=== PATIENT | male | born 1955 | race Caucasian/White ===

== ENCOUNTER 2020-07-01 21:25 | Inpatient (IN) | payer MEDICARE ==
[~2020-07-01] VITALS: Ht 175.3 cm; Wt 222.3 kg
[2020-07-01 20:00] VITALS: BP 128/73
[2020-07-01 21:39] VITALS: BP 157/74
[2020-07-01 22:10] LABS: ABSOLUTE MONOCYTES 0.5 thou/uL (0.0-1.2); BASOPHILS 0.3 %; HEMATOCRIT 39.6 % (37.0-47.0); HEMOGLOBIN 13.9 gm/dL (12.0-15.0); LYMPHOCYTES 21.2 %; MCH 29.5 pg (26.0-34.0); MCHC 35.2 g/dL (28.0-37.0); MCV 83.6 fL (80.0-100.0); MONOCYTES 11.3 %; MPV 8.5 fl. (7.2-11.1); NUCLEATED RBCS 0 /100WBC; PLATELET COUNT* 112 thou/uL (150-400); POLYS 67.2 %; RBC 4.73 mil/uL (4.20-5.00); RDW-CV 13.5 % (10.5-14.5); WBC 4.5 thou/uL (4.0-11.0)
[2020-07-01 22:14] LABS: CALCIUM 8.3 mg/dL (8.5-10.1); CREATININE 1.2 mg/dL (0.6-1.3)
[2020-07-01 22:19] LABS: ALBUMIN 3.2 g/dL (3.4-5.0); TOTAL BILIRUBIN 0.6 mg/dL (<0.1-1.0); TOTAL PROTEIN 6.8 g/dL (6.4-8.2)
[2020-07-01 22:21] LABS: PROTIME 10.4 Seconds (9.20-11.50)
[2020-07-01 22:24] LABS: INFLUENZA A ANTIGEN Negative (Negative); INFLUENZA B ANTIGEN Negative (Negative)
[2020-07-01 22:36] LABS: BE 0 mmol/L (-2 to +3); PCO2 35.1 mmHg (35.0-45.0); PO2 65.2 mmHg (75.0-100.0); pH 7.445 (7.340-7.450)
[2020-07-01 23:50] LABS: URINE BILIRUBIN NEGATIVE (Negative); URINE BLOOD TRACE (Negative); URINE CLARITY CLEAR; URINE COLOR YELLOW; URINE GLUCOSE-RANDOM NEGATIVE (Negative); URINE KETONES NEGATIVE (Negative); URINE LEUKOCYTES-REFLEX NEGATIVE (Negative); URINE NITRITE-REFLEX NEGATIVE (Negative); URINE PROTEIN 2+ (Negative); URINE SPECIFIC GRAVITY >= 1.030 (1.005-1.030); URINE UROBILINOGEN 0.2 E.U./dl (0.2-1.0)
[2020-07-02 00:05] VITALS: BP 130/68
[2020-07-02 00:14] LABS: CASTS None Seen /LPF (None Seen); SQUAMOUS 0-3 Few /LPF (0-3); URINE RBC 0-2 Rare /HPF (0-2); URINE WBC-REFLEX 0-5 Rare /HPF (0-5)
[2020-07-02 00:15] LABS: BACTERIA-REFLEX 1-9 Few /HPF (None Seen); CRYSTALS None Seen /LPF (None Seen)
[2020-07-02 01:00] VITALS: BP 128/73
--- NOTE | 2020-07-02 03:51 | NUR ---
RECEIVED REPORT FROM ED RN. PT TRASNFERRED TO ROOM 233. PT A&OX4. VSS. 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 ADMISSION HISTORY & PHYSICAL ASSESSMENT COMPLETED AND CHARTED. PT ON O2 AT 3L NC. PT TRACING SR/PAC ON TELE. PT UPSTANDBY. PT DENIES ANY PAIN. MAINTAINED ON ENHANCED ISOLATION FOR COVID. CALL LIGHT WITHIN REACH.
[2020-07-02 07:45] VITALS: BP 103/56
[2020-07-02 08:00] VITALS: BP 134/76
--- NOTE | 2020-07-02 10:30 | NUR ---
PC FROM RADIOLOGY. STATES PT NEEDS TO BE NPO FOR CHEST CT. PT HAS A 20 G IN HIS RIGHT AC WIH FLUIDS INFUSUING. PT INFORMED.
[2020-07-02 12:07] VITALS: BP 141/89
--- NOTE | 2020-07-02 15:31 | EKG ---
[place] [address] ELECTROCARDIOGRAM REPORT Name: ANA LAURAMaeveGORDO Negron Room: [place] [address] ADM IN M.R.#: [id number] Admission: 07/01/20 Attend Phys: Alena Rivera, Discharge: Date of : 55 Date of Service: 07/01/202140 Report #: [id number] THIS REPORT FOR: //name// [facility] ED Test Date: 2020-07-01 Test Time: 21:41:40 Pat Name: GORDO LEONG Department: Room: [facility] Gender: M Desk Reporter: [facility] : 1955 Requested By: Kate Howell Order Number: [id number] MD: Jordin Gibbs Measurements Intervals [place] Rate: 92 P: 57 [place]: 167 QRS: -36 QRSD: 88 T: 56 QT: 344 QTc: 426 Interpretive Statements Sinus rhythm Left axis deviation No previous ECG available for comparison Electronically Signed On 07-02-2020 15:31:09 TELEGRAPHER AGENT by Jordin Gibbs [email or web address] <ELECTRONICALLY SIGNED> By: Jordin Gibbs MD, [facility] 07/02/20 1531 40 40 Jordin Gibbs MD, [facility] /EPI
--- NOTE | 2020-07-02 16:23 | NUR ---
CM ATTEMPTED TO CONTACT PT VIA HOSPITAL ROOM PHONE AND HIS PERSONAL PHONE TO DISCUSS CM ASSESSMENT. NO ANSWER. PT IS CURRENTLY UNDER ENHANCED PRECAUTIONS D/T BEING COVID POSITIVE. 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 PT USES 0 DME. PT HAS 0 HX OF HH OR SNF. CM WILL REMAIN AVAILABLE TO ASSIST AND FOLLOW NEEDED.
--- NOTE | 2020-07-02 19:07 | NUR ---
PT ALERT AND ORIENTED. PT HAS REMAINED OFF O2 THIS SHIFT. PT DENIES DIZZINESS AT THIS TIME. APPETITE HAS INCREASED. PT SLEPT MOST OF THIS SHIFT. STEADILY AMBULATORY TO THE BATHRROM. PT TAKEN TO CT VIA WHEELCHAIR AND TOLERATED WELL. WILL CONTINUE TO MONITOR.
[2020-07-03 00:52] VITALS: BP 131/87
--- NOTE | 2020-07-03 01:52 | NUR ---
ASSUMED CARE OF PT AT 1900. PT IS ALERT AND ORIENTED. VSS. PERRLA. NO COMPLAINTS OF PAIN. STEADY GAIT. ROOM AIR. PT IS IN SINUS RYTHM ON THE TELEMETRY. PT IS RESTING COMFORTABLY IN BED. RESPIRATIONS ARE EVEN AND NONLABORED. WILL CONTINUE TO MONITOR PT.
[2020-07-03 04:00] VITALS: BP 131/87
[2020-07-03 04:32] LABS: HEMATOCRIT 37.3 % (42.0-52.0); HEMOGLOBIN 12.9 gm/dL (14.0-18.0); MCH 29.1 pg (26.0-34.0); MCHC 34.7 g/dL (28.0-37.0); MPV 8.7 fl. (7.2-11.1); RBC 4.44 mil/uL (4.50-6.00); RDW-CV 13.5 % (10.5-14.5); WBC 3.5 thou/uL (4.0-11.0)
[2020-07-03 05:14] LABS: CALCIUM 8.3 mg/dL (8.5-10.1); CREATININE 0.9 mg/dL (0.6-1.3); POTASSIUM 4.6 mmol/L (3.5-5.1)
[2020-07-03 08:00] VITALS: BP 147/83
[2020-07-03] MEDS ORDERED: DEXAMETHASONE 22 M1 PO (09:53)
[2020-07-03 10:03] VITALS: BP 147/83
--- NOTE | 2020-07-03 14:24 | NUR ---
CM INFORMED DURING PRIME ROUNDING OF THE PLAN OF CARE FOR THE PT. PLAN FOR THE PT TO D/C HOME TODAY WITH SELF-CARE AND NO CM NEEDS. CM WILL REMAIN AVAILABLE TO ASSIST AND FOLLOW NEEDED.
== END 2020-07-03 11:30 | disposition home or self-care (01) | DRG 177 ==
LOC: M.ERS 21:25 → EDSEX 21:25 → M.2W 23:26 → M.TBA-ER 23:26 → M.2W 07-02 00:28
PROVIDERS: Family Medicine; Personal Emergency Response Attendant; ADMIT Internal Medicine; ATTEND Internal Medicine
DX: U07.1 COVID-19 (principal); J96.01 Acute respiratory failure with hypoxia; J12.82 Pneumonia due to coronavirus disease 2019; E44.1 Mild protein-calorie malnutrition; E66.9 Obesity, unspecified; Z68.38 Body mass index [BMI] 38.0-38.9, adult; Z79.899 Other long term (current) drug therapy

== ENCOUNTER 2020-07-05 05:00 | Inpatient (IN) | payer MEDICARE ==
[~2020-07-05] VITALS: Ht 182.9 cm; Wt 88.7 kg
[~2020-07-05 05:00] MED LIST: DEXAMETHASONE 22 M1 PO
[2020-07-05 05:04] VITALS: BP 128/73
[2020-07-05 05:34] LABS: HEMATOCRIT 36.5 % (42.0-52.0); HEMOGLOBIN 12.7 gm/dL (14.0-18.0); MCH 29.2 pg (26.0-34.0); MCHC 34.9 g/dL (28.0-37.0); MCV 83.6 fL (80.0-100.0); NUCLEATED RBCS 0 /100WBC; PLATELET COUNT* 132 thou/uL (150-400); RBC 4.37 mil/uL (4.50-6.00); RDW-CV 13.6 % (10.5-14.5); WBC 5.2 thou/uL (4.0-11.0)
[2020-07-05 05:53] LABS: CALCIUM 7.8 mg/dL (8.5-10.1); POTASSIUM 4.3 mmol/L (3.5-5.1)
[2020-07-05 05:56] LABS: INR 1.1; PROTIME 11.6 Seconds (9.20-11.50)
[2020-07-05 06:08] LABS: ALBUMIN 2.7 g/dL (3.4-5.0); TOTAL BILIRUBIN 0.8 mg/dL (<0.1-1.0); TOTAL PROTEIN 6.6 g/dL (6.4-8.2)
[2020-07-05 07:17] LABS: ABSOLUTE LYMPHOCYTES 0.5 thou/uL (0.8-5.3); ABSOLUTE MONOCYTES 0.1 thou/uL (0.0-1.2); ABSOLUTE NEUTROPHILS 4.6 thou/uL (1.6-8.1); PLATELET ESTIMATE DECREASED
[2020-07-05 09:43] VITALS: BP 136/73
[2020-07-05 10:37] LABS: URINE BILIRUBIN NEGATIVE (Negative); URINE BLOOD NEGATIVE (Negative); URINE CLARITY CLEAR; URINE COLOR YELLOW; URINE GLUCOSE-RANDOM NEGATIVE (Negative); URINE KETONES 1+ (Negative); URINE LEUKOCYTES-REFLEX NEGATIVE (Negative); URINE NITRITE-REFLEX NEGATIVE (Negative); URINE PROTEIN TRACE (Negative); URINE UROBILINOGEN 0.2 E.U./dl (0.2-1.0)
[2020-07-05 11:51] VITALS: BP 129/69
[2020-07-05 16:06] VITALS: BP 116/74
[2020-07-05 20:00] VITALS: BP 110/73
[2020-07-05 23:45] VITALS: BP 120/72
[2020-07-06 04:14] VITALS: BP 127/72
[2020-07-06 04:36] LABS: ABSOLUTE LYMPHOCYTES 0.4 thou/uL (0.8-5.3); ABSOLUTE MONOCYTES 0.4 thou/uL (0.0-1.2); ABSOLUTE NEUTROPHILS 7.5 thou/uL (1.6-8.1); BASOPHILS 0.1 %; HEMATOCRIT 37.4 % (42.0-52.0); HEMOGLOBIN 13.2 gm/dL (14.0-18.0); LYMPHOCYTES 5.4 %; MCH 28.9 pg (26.0-34.0); MCHC 35.2 g/dL (28.0-37.0); MCV 82.2 fL (80.0-100.0); MONOCYTES 4.3 %; MPV 7.9 fl. (7.2-11.1); NUCLEATED RBCS 0 /100WBC; PLATELET COUNT* 180 thou/uL (150-400); POLYS 90.2 %; RBC 4.55 mil/uL (4.50-6.00); RDW-CV 13.7 % (10.5-14.5); WBC 8.3 thou/uL (4.0-11.0)
[2020-07-06 04:47] LABS: ALBUMIN 2.5 g/dL (3.4-5.0); CALCIUM 8.3 mg/dL (8.5-10.1); CREATININE 1.1 mg/dL (0.6-1.3); MAGNESIUM 2.2 mg/dL (1.8-2.4); TOTAL BILIRUBIN 0.6 mg/dL (<0.1-1.0); TOTAL PROTEIN 6.8 g/dL (6.4-8.2)
[2020-07-06 08:00] VITALS: BP 149/77
[2020-07-06 12:00] VITALS: BP 129/75
--- NOTE | 2020-07-06 12:17 | EKG ---
[place] [address] ELECTROCARDIOGRAM REPORT Name: ANA LAURAMaeveGORDO Negron Room: [place] [address] ADM IN M.R.#: [id number] Admission: 07/05/20 Attend Phys: Alena Rivera, Discharge: Date of : 55 Date of Service: 07/05/20 0510 Report #: [id number] THIS REPORT FOR: //name// [facility] ED Test Date: 2020-07-05 Test Time: 05:10:07 Pat Name: GORDO LEONG Department: Room: [facility] Gender: M Division Plant Engineer: : 1955 Requested By: Socorro Aldrich Order Number: [id number] MD: Baltazar Paige Measurements Intervals [place] Rate: 89 P: 49 NV: 168 QRS: -16 QRSD: 91 T: 21 QT: 342 QTc: 417 Interpretive Statements Sinus rhythm Borderline left axis deviation Baseline wander in lead(s) V1 Compared to ECG 07/01/2020 21:41:40 No significant changes noted Electronically Signed On 07-06-2020 12:17:22 AVIATION PROJECT MANAGER by Baltazar Paige [email or web address] <ELECTRONICALLY SIGNED> By: Baltazar Paige MD, FACC 07/06/20 1217 0510 0510 Baltazar Paige MD, FAC /EPI
[2020-07-06 16:42] VITALS: BP 117/77
[2020-07-06 20:05] VITALS: BP 127/75
[2020-07-07] VITALS: BP 129/73
[2020-07-07 05:01] LABS: ABSOLUTE LYMPHOCYTES 0.6 thou/uL (0.8-5.3); ABSOLUTE MONOCYTES 0.6 thou/uL (0.0-1.2); ABSOLUTE NEUTROPHILS 5.9 thou/uL (1.6-8.1); BASOPHILS 0.1 %; HEMATOCRIT 34.9 % (42.0-52.0); HEMOGLOBIN 12.4 gm/dL (14.0-18.0); LYMPHOCYTES 8.5 %; MCH 29.4 pg (26.0-34.0); MCHC 35.4 g/dL (28.0-37.0); MCV 82.9 fL (80.0-100.0); MONOCYTES 7.8 %; MPV 7.6 fl. (7.2-11.1); NUCLEATED RBCS 0 /100WBC; PLATELET COUNT* 204 thou/uL (150-400); POLYS 83.6 %; RBC 4.21 mil/uL (4.50-6.00); RDW-CV 13.6 % (10.5-14.5); WBC 7.1 thou/uL (4.0-11.0)
[2020-07-07 05:14] VITALS: BP 118/69
[2020-07-07 05:17] LABS: ALBUMIN 2.2 g/dL (3.4-5.0); CREATININE 0.9 mg/dL (0.6-1.3); POTASSIUM 4.4 mmol/L (3.5-5.1); TOTAL BILIRUBIN 0.6 mg/dL (<0.1-1.0); TOTAL PROTEIN 6.2 g/dL (6.4-8.2)
[2020-07-07 08:30] VITALS: BP 134/77
--- NOTE | 2020-07-07 11:40 | CON ---
[address] [address] CONSULTATION Name: GORDO LEONG Room: [place] [address] ADM IN .R.#: [id number] Admission: 07/05/20 Attend Phys: Alena Rivera MD Discharge: Date of : 55 Report #: [id number] THIS REPORT FOR: cc: Tenzin Hoffmann DC, Ray DC ~ Kael Mason MD DATE OF SERVICE: 07/05/2020 Consult has been a requested by Dr. Interiano. INDICATION FOR CONSULTATION: COVID-19. HISTORY OF PRESENT ILLNESS: This 65-year-old gentleman, past medical history does not include a history of any longstanding cardiac or respiratory disease. The patient also says that he is a lifetime nonsmoker. The patient was recently admitted with COVID-19 at this hospital, was treated with dexamethasone, did not receive plasma or remdesivir during the last hospitalization. The patient had subsequently requested discharge and was discharged in a stable condition. The patient did have a CTA chest, which was performed during the last hospitalization. This had not indicated any pulmonary emboli. He did have elevation in D-dimer. He did have extensive bilateral pulmonary infiltrates secondary to COVID-19, on his CT chest. The patient after going home, had increasing shortness of breath, which is the reason that he came back to the Emergency Room and was admitted early today. His O2 saturation is reported to be between 90% and 92% on room air, currently he is on 2 liters of oxygen. The patient also reports that he is feeling more weak. His chest x-ray does show significant progression of previously seen infiltrates. He does have a cough. There is not much sputum. There is no chest pain. He does not report upper respiratory complaints. Currently, he is not having fever or chills, but he did have a low-grade fever during the previous admission up to 37.6. He answers to the negative for 12 questions for review of systems except as mentioned above. PAST MEDICAL HISTORY: There is no pertinent past medical history. CURRENT MEDICATIONS: List in [place] reviewed. HOME MEDICATIONS: Recent use of dexamethasone as above. FAMILY HISTORY: No pertinent family history. SOCIAL HISTORY: Lifetime nonsmoker. No known history [place] [address] CONSULTATION Name: GORDO LEONG Room: [address]#: [id number] Admission: 07/05/20 Attend Phys: Alena Rivera MD Discharge: Date of : 55 Report #: [id number] illegal drug use. PHYSICAL EXAMINATION: GENERAL: He is alert, awake and oriented. VITAL SIGNS: He has a pulse of 82 and a blood pressure of 129/69. He is on 2 liters of oxygen. O2 saturation previously reported to be between 90 and 92 on room air. Currently, he has been saturating between 93 and 95 on 2 liters nasal cannula, respiratory rate is 18, heart rate 82, blood pressure 129/69, afebrile with a temperature of 36.6. HEENT: Head is normocephalic and atraumatic. Pupils are equal and reactive. Mucous membranes are moist. NECK: Does not show raised JVP, asymmetry, mass or lymph nodes. CHEST: Symmetrical expansion on inspection and palpation. On auscultation, breath sounds are bilaterally equal. I do not hear any added sounds. HEART: Regular. There is no murmur. ABDOMEN: Soft and nontender. EXTREMITIES: Lower extremities show no edema and no calf tenderness. SKIN: Dry and intact. NEUROLOGICAL: Moves all extremities bilaterally equally and spontaneously with no focal deficit identified. LABORATORY DATA: The patient's chest x-ray now is reviewed and compared with the chest x-ray done during the previous admission. I also reviewed the CT chest films as well as report. In summary, there are worsening infiltrates bilaterally. There is likely a component of increasing pulmonary vascular congestion as well. There are no pulmonary emboli on the last CT. Lab work in [facility] reviewed. Mild elevation in LFTs and mild decrease in platelet count noted. I have requested a magnesium level to be added to this morning's labs and that is pending at this time. The proBNP is mildly elevated. ASSESSMENT AND PLAN: 1. Acute respiratory insufficiency. Primarily, this is secondary to COVID-19. The patient may have a secondary bacterial infection as well. 2. COVID-19. I would continue dexamethasone at 6 mg a day for now. In case he worsens, then I will consider increasing the dose. I also recommend that we go ahead and treat him with remdesivir. This was discussed with the patient and he agreed. There is mild elevation in LFTs. I still feel that the benefit is greater than the risk and I will start. We will watch LFTs. I do not feel strongly either way regarding treating him with convalescent plasma at this time or holding off. I did not order at this time. 3. Pulmonary infiltrates. I also fully agree with covering him with antibiotics for possibility of possible secondary bacterial infection. If possible, then I recommend obtaining a nasal swab for methicillin-resistant Staphylococcus aureus as well as a sputum culture. [address] [place] [address] CONSULTATION Name: GORDO LEONG Room: [address] IN [facility]#: [id number] Admission: 07/05/20 Attend Phys: Alena Rivera MD Discharge: Date of : 55 Report #: [id number] 4. Mild fluid overload. I will go ahead and give him a dose of Lasix, follow response. We will check magnesium level as well and replace magnesium if indicated. 5. Elevated D-dimer/deep venous thrombosis prophylaxis. Last CTA chest did not show pulmonary emboli. I would go ahead and do venous Dopplers at this time. I would also treat him with the intermediate dose Lovenox for deep venous thrombosis prophylaxis at 0.5 mg/kg b.i.d. 6. Clostridium difficile prophylaxis, Lactinex. 7. Possible component of bronchospasm. Agree with continuing with DuoNeb. We agree with continuing with nebulized bronchodilators. We will adjust dose and to reduce frequency, I may consider adding Brovana. Thanks for this consultation. <ELECTRONICALLY SIGNED> By: Kael Mason MD 07/07/20 1140 1308 2033Akatarina Mason MD /nt
[2020-07-07 12:00] VITALS: BP 136/69
[2020-07-07 16:00] VITALS: BP 141/77
[2020-07-07 20:45] VITALS: BP 144/81
[2020-07-08 00:08] VITALS: BP 143/81
[2020-07-08 04:30] LABS: ABSOLUTE LYMPHOCYTES 0.6 thou/uL (0.8-5.3); ABSOLUTE MONOCYTES 0.6 thou/uL (0.0-1.2); ABSOLUTE NEUTROPHILS 5.7 thou/uL (1.6-8.1); BASOPHILS 0.1 %; HEMATOCRIT 36.4 % (42.0-52.0); HEMOGLOBIN 12.5 gm/dL (14.0-18.0); LYMPHOCYTES 8.9 %; MCH 28.7 pg (26.0-34.0); MCHC 34.5 g/dL (28.0-37.0); MCV 83.2 fL (80.0-100.0); MONOCYTES 8.2 %; MPV 7.5 fl. (7.2-11.1); NUCLEATED RBCS 0 /100WBC; PLATELET COUNT* 254 thou/uL (150-400); POLYS 82.8 %; RBC 4.38 mil/uL (4.50-6.00); RDW-CV 13.5 % (10.5-14.5); WBC 6.9 thou/uL (4.0-11.0)
[2020-07-08 04:45] VITALS: BP 127/76
[2020-07-08 04:54] LABS: ALBUMIN 2.1 g/dL (3.4-5.0); CALCIUM 8.2 mg/dL (8.5-10.1); CREATININE 0.9 mg/dL (0.6-1.3); POTASSIUM 4.5 mmol/L (3.5-5.1); TOTAL BILIRUBIN 0.6 mg/dL (<0.1-1.0); TOTAL PROTEIN 6.2 g/dL (6.4-8.2)
[2020-07-08 09:30] VITALS: BP 132/78
[2020-07-08 15:54] VITALS: BP 131/81; BP 167/97
[2020-07-08 16:35] VITALS: BP 167/97
[2020-07-08 20:05] VITALS: BP 126/78
[2020-07-09] VITALS: BP 130/66
[2020-07-09 04:26] LABS: ABSOLUTE LYMPHOCYTES 0.5 thou/uL (0.8-5.3); ABSOLUTE MONOCYTES 0.4 thou/uL (0.0-1.2); ABSOLUTE NEUTROPHILS 4.7 thou/uL (1.6-8.1); BASOPHILS 0.3 %; HEMATOCRIT 39.3 % (42.0-52.0); HEMOGLOBIN 13.7 gm/dL (14.0-18.0); LYMPHOCYTES 8.6 %; MCH 28.8 pg (26.0-34.0); MCHC 34.9 g/dL (28.0-37.0); MCV 82.5 fL (80.0-100.0); MONOCYTES 7.5 %; MPV 7.3 fl. (7.2-11.1); NUCLEATED RBCS 0 /100WBC; POLYS 83.6 %; RBC 4.77 mil/uL (4.50-6.00); RDW-CV 13.6 % (10.5-14.5); WBC 5.6 thou/uL (4.0-11.0)
[2020-07-09 04:34] LABS: ALBUMIN 2.5 g/dL (3.4-5.0); CALCIUM 8.7 mg/dL (8.5-10.1); POTASSIUM 4.2 mmol/L (3.5-5.1); TOTAL BILIRUBIN 0.7 mg/dL (<0.1-1.0); TOTAL PROTEIN 7.1 g/dL (6.4-8.2)
[2020-07-09 05:00] LABS: PLATELET COUNT* 340 thou/uL (150-400)
[2020-07-09 06:29] VITALS: BP 124/71
[2020-07-09 08:30] VITALS: BP 117/75
[2020-07-09 13:02] VITALS: BP 136/75; BP 145/86; BP 159/83
--- NOTE | 2020-07-09 13:13 | 2DMMODE ---
[place] [address] 2 D/M-MODE ECHOCARDIOGRAM Name: GODRO LEONG Room: [place] [address] ADM IN [facility].#: [id number] Admission: 07/05/20 Attend Phys: Alena Rivera, Discharge: Date of : 55 Date of Service: 07/09/20 1312 Report #: [id number] THIS REPORT FOR: cc: Tenzin Hoffmann DC, Ray DC Blick, David R. MD [facility] ~ APPROVED REPORT Study performed: 07/09/2020 11:13:38 EXAM: Comprehensive 2D, Doppler, and color-flow Echocardiogram Patient Location: In-Patient Room #: [facility] Status: routine BSA: 2.08 HR: 65 bpm BP: 117/75 mmHg Rhythm: NSR Other Information Study Quality: Good Indications Dyspnea 2D Dimensions IVSd: 8.83 (7-11mm) LVOT Diam: 19.86 (18-24mm) LVDd: 49.08 mm PWd: 9.39 (7-11mm) Ascending Ao: 30.99 (22-36mm) LVDs: 28.86 (25-40mm) Aortic Root: 28.62 mm Volumes Left Atrial Volume (Systole) LA ESV Index: 18.80 mL/m2 Aortic Valve AoV Peak Dk.: 1.32 m/s AO Peak Gr.: 6.97 mmHg LVOT Max P.71 mmHg AO Mean Gr.: 3.72 mmHg LVOT Mean P.44 mmHg LVOT Max V: 1.30 m/s AO V2 VTI: 28.77 cm LVOT Mean V: 0.69 m/s DALJIT (VTI): 2.88 cm2 LVOT V1 VTI: 26.76 [place] [address] 2 D/M-MODE ECHOCARDIOGRAM Name: GORDO LEONG Room: [address] IN ..#: [id number] Admission: 07/05/20 Attend Phys: Alena Rivera, Discharge: Date of : 55 Date of Service: 07/09/20 1312 Report #: [id number] Mitral Valve E/A Ratio: 0.82 MV Decel. Time: 250.70 ms MV E Max Dk.: 0.68 m/s MV PHT: 72.70 ms MVA (PHT): 3.03 cm2 TDI E/Lateral E': 8.50 E/Medial E': 8.50 Medial E' Dk.: 0.08 m/s Lateral E' Dk.: 0.08 m/s Pulmonary Valve PV Peak Dk.: 1.12 m/s PV Peak Gr.: 5.03 mmHg Tricuspid Valve RAP Estimate: 5.00 mmHg TR Peak Gr.: 24.14 mmHg RVSP: 29.00 mmHg PA Pressure: 29.00 mmHg Left Ventricle The left ventricle is normal size. There is normal LV segmental wall motion. There is normal left ventricular wall thickness. Left ventricular systolic function is normal. The left ventricular ejection fraction is within the normal range. LVEF is 60-65%. Grade I - abnormal relaxation pattern. Right Ventricle Right ventricle is dilated. The right ventricular systolic function is normal. Atria The left atrium size is normal. Right atrium is dilated. Aortic Valve The aortic valve is normal in structure. No aortic regurgitation is present. There is no aortic valvular stenosis. Mitral Valve The mitral valve is normal in structure. Trace mitral regurgitation. No evidence of mitral valve stenosis. Tricuspid Valve The tricuspid valve is normal in structure. Trace tricuspid regurgitation[place] [address] 2 D/M-MODE ECHOCARDIOGRAM Name: GORDO LEONG Room: [address] IN [facility]#: [id number] Admission: 07/05/20 Attend Phys: Alena Rivera, Discharge: Date of : 55 Date of Service: 07/09/20 1312 Report #: [id number] Pulmonic Valve The pulmonary valve is normal in structure. Trace pulmonic regurgitation. Great Vessels The aortic root is normal in size. IVC is normal in size and collapses >50% with inspiration. Pericardium There is no pericardial effusion. <Conclusion> Left ventricular systolic function is normal. The left ventricular ejection fraction is within the normal range. <ELECTRONICALLY SIGNED> By: Gurvinder Saleh MD, FACC 07/09/20 131 11 131 Gurvinder Saleh MD, FACC /INF
[2020-07-09 21:10] VITALS: BP 144/71
[2020-07-10 00:23] VITALS: BP 133/74
[2020-07-10 04:37] LABS: HEMATOCRIT 39.6 % (42.0-52.0); HEMOGLOBIN 13.6 gm/dL (14.0-18.0); MCH 28.9 pg (26.0-34.0); MCHC 34.4 g/dL (28.0-37.0); MCV 84.1 fL (80.0-100.0); MPV 7.1 fl. (7.2-11.1); NUCLEATED RBCS 0 /100WBC; PLATELET COUNT* 378 thou/uL (150-400); RBC 4.71 mil/uL (4.50-6.00); RDW-CV 13.6 % (10.5-14.5); WBC 8.1 thou/uL (4.0-11.0)
[2020-07-10 05:01] LABS: ALBUMIN 2.4 g/dL (3.4-5.0); CREATININE 1.2 mg/dL (0.6-1.3); POTASSIUM 4.2 mmol/L (3.5-5.1); TOTAL BILIRUBIN 0.5 mg/dL (<0.1-1.0); TOTAL PROTEIN 6.9 g/dL (6.4-8.2)
[2020-07-10 05:25] VITALS: BP 133/73
[2020-07-10 05:46] LABS: ABSOLUTE LYMPHOCYTES 0.5 thou/uL (0.8-5.3); ABSOLUTE MONOCYTES 0.6 thou/uL (0.0-1.2); PLATELET ESTIMATE ADEQUATE
[2020-07-10 08:00] VITALS: BP 138/72
[2020-07-10 11:50] VITALS: BP 138/74
[2020-07-10 16:58] VITALS: BP 124/71
[2020-07-10 20:00] VITALS: BP 141/78
[2020-07-11] VITALS: BP 142/74
[2020-07-11 04:00] VITALS: BP 153/77
[2020-07-11 08:00] VITALS: BP 139/83
[2020-07-11 12:00] VITALS: BP 139/77
[2020-07-11 16:18] VITALS: BP 146/76
[2020-07-11 20:00] VITALS: BP 140/89
[2020-07-12 00:20] VITALS: BP 136/75
[2020-07-12 05:13] LABS: ABSOLUTE LYMPHOCYTES 0.7 thou/uL (0.8-5.3); ABSOLUTE MONOCYTES 0.4 thou/uL (0.0-1.2); ABSOLUTE NEUTROPHILS 8.7 thou/uL (1.6-8.1); BASOPHILS 0.1 %; EOSINOPHILS 0.1 %; HEMATOCRIT 37.6 % (42.0-52.0); LYMPHOCYTES 7.2 %; MCH 29.1 pg (26.0-34.0); MCHC 34.6 g/dL (28.0-37.0); MCV 84.1 fL (80.0-100.0); MONOCYTES 4.4 %; NUCLEATED RBCS 0 /100WBC; PLATELET COUNT* 382 thou/uL (150-400); POLYS 88.2 %; RBC 4.47 mil/uL (4.50-6.00); RDW-CV 13.5 % (10.5-14.5); WBC 9.9 thou/uL (4.0-11.0)
[2020-07-12 05:28] LABS: ALBUMIN 2.3 g/dL (3.4-5.0); CALCIUM 8.7 mg/dL (8.5-10.1); CREATININE 0.9 mg/dL (0.6-1.3); POTASSIUM 4.9 mmol/L (3.5-5.1); TOTAL BILIRUBIN 0.6 mg/dL (<0.1-1.0)
[2020-07-12 06:28] VITALS: BP 139/61
[2020-07-12 08:00] VITALS: BP 129/75
[2020-07-12 12:00] VITALS: BP 132/79
[2020-07-12 16:00] VITALS: BP 129/85
[2020-07-12 22:20] VITALS: BP 120/70
[2020-07-13 04:38] VITALS: BP 143/88
[2020-07-13 04:48] LABS: ABSOLUTE LYMPHOCYTES 1.5 thou/uL (0.8-5.3); ABSOLUTE MONOCYTES 0.8 thou/uL (0.0-1.2); ABSOLUTE NEUTROPHILS 10.6 thou/uL (1.6-8.1); BASOPHILS 0.1 %; EOSINOPHILS 0.4 %; HEMATOCRIT 38.6 % (42.0-52.0); LYMPHOCYTES 11.2 %; MCH 28.5 pg (26.0-34.0); MCHC 33.8 g/dL (28.0-37.0); MCV 84.4 fL (80.0-100.0); MONOCYTES 5.9 %; MPV 7.2 fl. (7.2-11.1); NUCLEATED RBCS 0 /100WBC; PLATELET COUNT* 360 thou/uL (150-400); POLYS 82.4 %; RBC 4.58 mil/uL (4.50-6.00); RDW-CV 13.6 % (10.5-14.5); WBC 12.9 thou/uL (4.0-11.0)
[2020-07-13 04:53] LABS: CALCIUM 8.6 mg/dL (8.5-10.1); CREATININE 0.9 mg/dL (0.6-1.3); POTASSIUM 4.5 mmol/L (3.5-5.1)
[2020-07-13 07:58] VITALS: BP 139/81
[2020-07-13 12:00] VITALS: BP 142/79
[2020-07-13 16:00] VITALS: BP 132/81
[2020-07-13 20:00] VITALS: BP 135/89
[2020-07-14 00:32] VITALS: BP 135/92
[2020-07-14 08:00] VITALS: BP 119/80
[2020-07-14 08:31] LABS: HEMATOCRIT 40.9 % (42.0-52.0); HEMOGLOBIN 13.7 gm/dL (14.0-18.0); MCH 28.1 pg (26.0-34.0); MCHC 33.6 g/dL (28.0-37.0); MCV 83.6 fL (80.0-100.0); MPV 7.1 fl. (7.2-11.1); NUCLEATED RBCS 0 /100WBC; PLATELET COUNT* 400 thou/uL (150-400); RBC 4.89 mil/uL (4.50-6.00); RDW-CV 13.4 % (10.5-14.5)
[2020-07-14 08:46] LABS: ALBUMIN 2.5 g/dL (3.4-5.0); CALCIUM 8.6 mg/dL (8.5-10.1); CREATININE 0.9 mg/dL (0.6-1.3); TOTAL BILIRUBIN 0.6 mg/dL (<0.1-1.0); TOTAL PROTEIN 6.3 g/dL (6.4-8.2)
[2020-07-14 09:13] LABS: ABSOLUTE EOSINOPHILS 0.1 thou/uL (0.0-0.7); ABSOLUTE LYMPHOCYTES 3.3 thou/uL (0.8-5.3); ABSOLUTE MONOCYTES 0.5 thou/uL (0.0-1.2); ABSOLUTE NEUTROPHILS 9.1 thou/uL (1.6-8.1); PLATELET ESTIMATE ADEQUATE
[2020-07-14 12:00] VITALS: BP 126/70
[2020-07-14 20:00] VITALS: BP 121/74
[2020-07-15 03:54] VITALS: BP 125/73
[2020-07-15 04:26] LABS: ABSOLUTE EOSINOPHILS 0.1 thou/uL (0.0-0.7); ABSOLUTE LYMPHOCYTES 1.5 thou/uL (0.8-5.3); ABSOLUTE MONOCYTES 0.8 thou/uL (0.0-1.2); ABSOLUTE NEUTROPHILS 10.9 thou/uL (1.6-8.1); BASOPHILS 0.1 %; EOSINOPHILS 0.7 %; HEMATOCRIT 37.5 % (42.0-52.0); HEMOGLOBIN 12.7 gm/dL (14.0-18.0); LYMPHOCYTES 11.3 %; MCH 28.4 pg (26.0-34.0); MCHC 33.9 g/dL (28.0-37.0); MCV 83.6 fL (80.0-100.0); MONOCYTES 5.9 %; MPV 7.3 fl. (7.2-11.1); NUCLEATED RBCS 0 /100WBC; PLATELET COUNT* 359 thou/uL (150-400); RBC 4.49 mil/uL (4.50-6.00); RDW-CV 13.6 % (10.5-14.5); WBC 13.3 thou/uL (4.0-11.0)
[2020-07-15 04:33] LABS: CALCIUM 8.7 mg/dL (8.5-10.1); CREATININE 0.9 mg/dL (0.6-1.3); POTASSIUM 4.3 mmol/L (3.5-5.1)
[2020-07-15 09:00] VITALS: BP 126/77
[2020-07-15] MEDS ORDERED: PROTONIX40 M2 PO (10:12)
[2020-07-15] MEDS ORDERED: DEXAMETHASONE1 MG PO (10:12)
[2020-07-15] MEDS ORDERED: VENTOLIN HFA 1818 GM INH (10:12)
[2020-07-15] MEDS ORDERED: DOXYCYCLINE 10100 MG PO (10:12)
[2020-07-15 12:40] VITALS: BP 126/77
== END 2020-07-15 13:30 | disposition home or self-care (01) | DRG 871 ==
LOC: M.ERS 05:00 → M.TBA-ER 06:42 → M.2W 06:42
PROVIDERS: Emergency Medicine; Internal Medicine; ADMIT Internal Medicine; ATTEND Internal Medicine
PROC: XW033E5 Introduction of Remdesivir Anti-infective into Peripheral Vein, Percutaneous Approach, New Technology Group 5 (ICD-10-PCS; principal; 2020-07-05)
PROC: XW13325 Transfusion of Convalescent Plasma (Nonautologous) into Peripheral Vein, Percutaneous Approach, New Technology Group 5 (ICD-10-PCS; 2020-07-08)
PROC: 5A0935A Assistance with Respiratory Ventilation, Less than 24 Consecutive Hours, High Flow/Velocity Cannula (ICD-10-PCS; 2020-07-08)
PROC: 5A0935A Assistance with Respiratory Ventilation, Less than 24 Consecutive Hours, High Flow/Velocity Cannula (ICD-10-PCS; 2020-07-09)
PROC: 5A0935A Assistance with Respiratory Ventilation, Less than 24 Consecutive Hours, High Flow/Velocity Cannula (ICD-10-PCS; 2020-07-10)
PROC: 5A09357 Assistance with Respiratory Ventilation, Less than 24 Consecutive Hours, Continuous Positive Airway Pressure (ICD-10-PCS; 2020-07-11)
PROC: 5A0935A Assistance with Respiratory Ventilation, Less than 24 Consecutive Hours, High Flow/Velocity Cannula (ICD-10-PCS; 2020-07-11)
PROC: 5A0935A Assistance with Respiratory Ventilation, Less than 24 Consecutive Hours, High Flow/Velocity Cannula (ICD-10-PCS; 2020-07-12)
PROC: 5A0935A Assistance with Respiratory Ventilation, Less than 24 Consecutive Hours, High Flow/Velocity Cannula (ICD-10-PCS; 2020-07-13)
PROC: 5A0935A Assistance with Respiratory Ventilation, Less than 24 Consecutive Hours, High Flow/Velocity Cannula (ICD-10-PCS; 2020-07-14)
DX: A41.89 Other specified sepsis (principal); U07.1 COVID-19; J12.82 Pneumonia due to coronavirus disease 2019; J80 Acute respiratory distress syndrome; E43 Unspecified severe protein-calorie malnutrition; E66.9 Obesity, unspecified; E87.70 Fluid overload, unspecified; Z68.26 Body mass index [BMI] 26.0-26.9, adult; Z79.899 Other long term (current) drug therapy